=== PATIENT | female | born 1970 | race African-American/Black ===

== ENCOUNTER 2016-07-17 12:42 | Emergency (ER) ==
[2016-07-17] MEDS ORDERED: DECADRON IM ONE (14:42)
[2016-07-17] MEDS ORDERED: AMOXIL PO ONE (14:42)
[2016-07-17] MEDS ORDERED: ZYRTEC PO ONE (14:42)
[2016-07-17] MEDS ORDERED: TYLENOL PO ONE (14:42)
--- NOTE | 2016-07-17 14:48 | PROVIDER DOCUMENTATION ---
HPI-General Adult - General Chief Complaint: Cold Symptoms Stated Complaint: FLU SX Time Seen by Provider: 07/17/16 14:10 Source: patient Allergies/Adverse Reactions: Patient Allergies Allergy/AdvReac Type Severity Reaction Status Date / Time No Known Allergies Allergy Verified 07/17/16 13:14 Home Medications: Cholecalciferol (Vit D3) [Vitamin D] 1,000 unit PO BID 06/20/16 Folic Acid/Multivit-Min/Lutein [Multi-Vitamin Gummies] 1 tab PO BID 06/20/16 - History of Present Illness -Gen Adult Nature of Presenting Problems: Pt. is 45 yof that presents with c/o sinus pressure, congestion, sore throat, and cough. Pt. reports symptoms for two days. Pt. denies any fever or other symptoms at time of exam. Location of Pain/Injury: reports: head. denies: face, mouth, neck, chest, upper extremity, hand(s), abdomen, back, pelvis, genitalia, lower extremity, feet, upper body, lower body, generalized Pain Radiation: reports: no radiation Quality of Pain: reports: aching, pressure. denies: burning, cramping, dull, fullness, indigestion, sharp, stabbing, tearing, throbbing, tightness Severity: reports: mild. denies: moderate, severe Onset/Duration: reports: gradual, 2 days ago Timing: reports: still present. denies: improving, gone now, resolved prior to arrival, intermittent, constant, changing over time, getting worse Context/Activities at Onset: reports: none. denies: recent emotional stress, recent physical stress, recent trauma history, possible bad food, cold exposure , out of country travel Modifying Factors: improves with: nothing Associated Symptoms: reports: cough, EENT symptoms, headaches, malaise, sinus congestion/drainage. denies: anxiety, arm pain, back/neck pain, chest pain, constipation, diaphoresis, diarrhea, dizziness, fatigue, fever/chills, genitourinary problems, heartburn, joint pain, muscle aches, nausea, rash, seizure, shortness of breath, sensory/motor loss, pain with inspiration, swelling/mass in abdomen, syncope, vomiting, weakness, trouble walking Similar Symptoms Previously?: Yes Recently seen or treated by another doctor?: No Review of Systems - Adult - REVIEW OF SYSTEMS - ADULT Constitutional: reports: see HPI. denies: chills, fever, fatique, night sweats Eyes: reports: see HPI. denies: discharge, blurred vision, double vision, eye pain Ears, Nose, Mouth & Throat: reports: see HPI, sinus problem, throat pain. denies: ear pain, hearing loss, nose pain, loose teeth, mouth/dental pain, throat swelling Cardiovascular: reports: see HPI. denies: chest pain, irregular heart rate, palpitations, syncope Respiratory: reports: see HPI, cough. denies: dyspnea on exertion, pleurisy, shortness of breath, wheezing Gastrointestinal: reports: see HPI. denies: abdominal pain, hematemesis, diarrhea, nausea, vomiting Genitourinary: reports: see HPI. denies: dysuria, discharge, hematuria, incontinence, urgency Musculoskeletal: reports: see HPI. denies: bone pain, back pain, joint pain, muscle aches, neck pain Integumentary: reports: see HPI. denies: hives, itching, rash, skin thickening Neurological: reports: see HPI, headache/migraines. denies: ataxia, numbness, seizure, tremors Psychiatric: reports: see HPI. denies: anxiety, depression, emotional problems , insomnia, panic attacks, suicidal thoughts Past History - Adult - PAST MEDICAL HISTORY-ADULT Review of Records: reports: Old Records Reviewed, Nursing Assessment Review, Medications Reviewed, Social history reviewed & non-contributory. Major Childhood Illnesses: reports: denies history Cardiovascular: reports: denies history Respiratory: reports: denies history Gastrointestinal: reports: GERD Obstetrical/Gynecological: reports: denies history Genitourinary: reports: denies history Musculoskeletal: reports: arthritis Neurological: reports: denies history Psychiatric: reports: anxiety, depression ("healed") Endocrine/Immune: reports: anemia (chronic anemia) Other Conditions: reports: denies history - PRIOR SURGERIES/PROCEDURES Surgical/Procedure History: reports: hysterectomy, orthopedic (extremity) (Left knee), other (breast reduction) - PRIOR HOSPITALIZATIONS Prior Hospitalizations: reports: none - IMMUNIZATION STATUS Childhood Immunizations: See Nurse Assessment Flu Vaccine: See Nurse Assessment - FAMILY HISTORY Family History: reviewed, not pertinent Physical Exam-General - PHYSICAL EXAM-ADULT Initial Vital Signs Reviewed: Yes - CONSTITUTIONAL General Appearance: alert, mild distress, thin. negative: obese, anxious, lethargic, slow to respond, obtunded, combative - EYES Eyes: PERRL/EOMI, pink conjunctivae. negative: conjuctival exudate, photophobia , subconjunctival hemorrhage - HEAD, EARS, NOSE, MOUTH & THROAT HENMT: normocephalic/atraumatic, moist mucous membranes, pharyngeal erythema, frontal tenderness. negative: angioedema, tonsillar exudate, maxillary tenderness - NECK Neck: non-tender, full range of motion, supple, normal inspection. negative: lymphadenopathy, trachial deviation, thyromegaly - RESPIRATORY Respiratory: lungs clear, normal breath sounds. negative: crackles, rales, rhonchi, stridor, wheezing - CARDIOVASCULAR Cardiovascular: normal peripheral pulses, regular rate, rhythm, no edema, no JVD , no murmur. negative: extra beats, friction rub, irregularly irregular - CHEST (BREASTS) Chest/Breast: deferred - GASTROINTESTINAL (ABDOMEN) Abdominal Exam: normal bowel sounds, non tender, soft. negative: distended, guarding, rigid, rebound, tenderness, hernia, mass - GENITOURINARY Female Genitalia/Pelvic Exam: deferred Rectal Exam: deferred Hemoccult Exam: deferred - LYMPHATIC Lymphatic: no adenopathy. negative: axilla node tender, cervical node tenderness - MUSCULOSKELETAL Back Exam: normal inspection, no CVA tenderness, no vertebral tenderness. negative: ecchymosis, scoliosis, swelling, vertebral tenderness Extremity: normal range of motion, non-tender, normal gait, normal inspection. negative: deformity, erythema, inflammation, swelling, tenderness Peripheral Pulses: radial (R): 2+, radial (L): 2+ - SKIN Integumentary: normal color, normal turgor, warm/dry. negative: cyanosis, diaphoresis, ecchymosis, erythema, jaundice, mottled, pallor, petechiae, purpura , rash, swelling, tenderness - NEUROLOGIC Neurologic: grossly normal, no motor/sensory deficits. negative: abnormal gait , aphasia, facial droop, focal weakness, motor weakness, sensory deficit - PSYCHIATRIC Psych/Mental Status: normal mood/affect, normal thought content, normal thought process, oriented x 3. negative: anxious, paranoid, tearful Progress - PLAN OF CARE/RESULTS Progress/Plan/Lab Results: Discussed results and plan of care with patient. Patient agrees with plan and verbalizes understanding. Vital Signs Temp Pulse Resp BP Pulse Ox 07/17/16 13:12 98.4 F 105 H 18 120/065 99 No Known Allergies Allergy (Verified 07/17/16 13:14) Cholecalciferol (Vit D3) [Vitamin D] 1,000 unit PO BID 06/20/16 Folic Acid/Multivit-Min/Lutein [Multi-Vitamin Gummies] 1 tab PO BID 06/20/16 Meclizine [Antivert] 12.5 mg PO TID PRN #30 tablet 06/20/16 Orders Category Date Time Status Acetaminophen [Tylenol] Med 07/17/16 14:42 Discontinued 1,000 mg PO NOW ONE Amoxicillin [Amoxil] Med 07/17/16 14:42 Discontinued 500 mg PO NOW ONE Cetirizine [Zyrtec] Med 07/17/16 14:42 Discontinued 10 mg PO NOW ONE Dexamethasone [Decadron] Med 07/17/16 14:42 Discontinued 10 mg IM NOW ONE Departure - Departure Time of Disposition Order: 14:50 DIAGNOSIS: Sinusitis Qualifiers: Sinusitis location: frontal Chronicity: acute Recurrence: non-recurrent Qualified Code(s): J01.10 - Acute frontal sinusitis, unspecified Disposition: HOME 01 Certified Medical Emergency: Emergent Condition: Stable Additional Instructions: Follow up with primary care physician Take medications as directed Return to ED for any concerns or worsening of symptoms ED Follow Up Instructions: You have been treated by a care provider in the Emergency Department. These instructions are being provided to you so you can have an understanding of how to care for yourself upon discharge. Upon discharge from the Emergency Department, you are responsible for making arrangements for follow-up care by a physician of your choice. Take all prescribed medications as directed. Return to the Emergency Department immediately for any new or worsening symptoms. You may call the Physician Referral phone number at [phone] to obtain a list of Physicians who are taking new patients. Prescriptions: Amoxicillin 500 mg PO BID #14 tablet Methylprednisolone [Medrol Dosepak] 4 mg PO DIRECTED #1 package Benzonatate [Tessalon Perle] 100 mg PO TID #15 capsule Cetirizine [Zyrtec] 10 mg PO DAILY #20 tablet Attestation - Physician/ Mid-level Attestation Patient care was provided by Mid-level provider ([employer] ATTENDANT/PA):: Yes Mid-level provider:: Louise Monsalve Mid-level documentation review:: The Mid-level provider documentation, treatment plan and medical decision making was reviewed by the physician who agrees with all treatment and medical decision making by the MLP.
[2016-07-17 15:11] VITALS: BP 127/81
== END 2016-07-17 15:22 | disposition home or self-care (01) ==
LOC: P.ED 12:42
DX: J01.10 Acute frontal sinusitis, unspecified (principal); R09.81 Nasal congestion; J34.89 Other specified disorders of nose and nasal sinuses; J02.9 Acute pharyngitis, unspecified; R05 Cough; R51 Headache; R53.81 Other malaise; M19.90 Unspecified osteoarthritis, unspecified site
CPT/HCPCS: 96372

== ENCOUNTER 2016-09-07 13:39 | Emergency (ER) ==
[2016-09-07 14:09] VITALS: BP 134/73
[2016-09-07] MEDS ORDERED: TYLENOL PO ONE (14:11)
--- NOTE | 2016-09-07 14:41 | PROVIDER DOCUMENTATION ---
HPI-Respiratory General <Sanaz IrelandBarbi - Last Filed: 09/07/16 14:40> - General Source: patient - History of Present Illness-Resp Quality of Pain: reports: aching Severity in ED: reports: mild, moderate Onset/Duration: reports: gradual, 2 days ago Timing: reports: still present, constant Context: reports: multiple patients with similar complaints. denies: sports/ exercise, aspiration/choking Cough Quality/Degree: reports: mild, dry cough Episode Frequency: occasional episodes Current Respiratory Medication Therapy: Initiated see nurses note Modifying Factors: worse with: coughing Associated Symptoms: reports: cough, flu-like symptoms, muscle/bodyaches. denies: shortness of breath, short of breath, wheezing Similar Symptoms Previously?: No Recently seen or treated by another doctor?: No <Denver Richardson - Last Filed: 09/07/16 14:48> - General Chief Complaint: Flu Symptoms Stated Complaint: FLU SX Time Seen by Provider: 09/07/16 14:36 Allergies/Adverse Reactions: Patient Allergies Allergy/AdvReac Type Severity Reaction Status Date / Time No Known Allergies Allergy Verified 07/17/16 13:14 Home Medications: Home Medication List Medication Instructions Recorded Confirmed Last Taken Type Azithromycin [Zithromax Z-Jesse] 250 mg PO DIRECTED #1 pkg 09/07/16 Unknown Rx Methylprednisolone [Medrol Dosepak] 4 mg PO DIRECTED #1 package 09/07/16 Unknown Rx - History of Present Illness-Resp Nature of Presenting Problem: pt is a 45 y/o F that presents to the ER with 2 days of cough congestion, body aches, and fever/chills. patient denies n/v/d. (Denver Richardson) Review of Systems - Adult - REVIEW OF SYSTEMS - ADULT Constitutional: reports: chills, fever Eyes: denies: blurred vision, double vision Ears, Nose, Mouth & Throat: denies: ear pain, sinus problem, throat pain Cardiovascular: denies: chest pain, palpitations, syncope Respiratory: reports: cough. denies: shortness of breath, wheezing Gastrointestinal: reports: no symptoms reported Genitourinary: reports: no symptoms reported Musculoskeletal: reports: muscle aches, muscle weakness Integumentary: reports: no symptoms reported Neurological: reports: no symptoms reported Psychiatric: reports: no symptoms reported Endocrine: reports: no symptoms reported Hematologic/Lymphatic: reports: no symptoms reported Allergic/Immunologic: reports: no symptoms reported All Other Systems: Reviewed and Negative <Denver Richardson - Last Filed: 09/07/16 14:48> Past History - Adult - PAST MEDICAL HISTORY-ADULT Major Childhood Illnesses: reports: denies history Cardiovascular: reports: denies history Respiratory: reports: denies history Gastrointestinal: reports: GERD Obstetrical/Gynecological: reports: denies history Genitourinary: reports: denies history Musculoskeletal: reports: arthritis Neurological: reports: denies history Psychiatric: reports: anxiety, depression ("healed") Endocrine/Immune: reports: anemia (chronic anemia) Other Conditions: reports: denies history - PRIOR SURGERIES/PROCEDURES Surgical/Procedure History: reports: hysterectomy, orthopedic (extremity) (Left knee), other (breast reduction) - PRIOR HOSPITALIZATIONS Prior Hospitalizations: reports: none - IMMUNIZATION STATUS Childhood Immunizations: See Nurse Assessment Flu Vaccine: See Nurse Assessment - FAMILY HISTORY Family History: reviewed, not pertinent <Sanaz Ireland - Last Filed: 09/07/16 14:40> - PAST MEDICAL HISTORY-ADULT Review of Records: reports: Old Records Reviewed, Nursing Assessment Review, Medications Reviewed Gastrointestinal: reports: GERD Psychiatric: reports: anxiety Endocrine/Immune: reports: anemia - PRIOR SURGERIES/PROCEDURES Surgical/Procedure History: reports: hysterectomy, orthopedic (extremity) - IMMUNIZATION STATUS Childhood Immunizations: See Nurse Assessment Flu Vaccine: See Nurse Assessment - FAMILY HISTORY Family History: reviewed, not pertinent - SOCIAL HISTORY Smoking: non-smoker Alcohol Use Frequency: occasionally Living Situation: family <Denver Richardson - Last Filed: 09/07/16 14:48> Physical Exam-General - PHYSICAL EXAM-ADULT Initial Vital Signs Reviewed: Yes - CONSTITUTIONAL General Appearance: alert, no apparent distress - EYES Eyes: PERRL/EOMI, pink conjunctivae - HEAD, EARS, NOSE, MOUTH & THROAT HENMT: normocephalic/atraumatic, moist mucous membranes, normal ENT inspection - NECK Neck: non-tender, full range of motion, normal inspection - RESPIRATORY Respiratory: lungs clear, normal breath sounds, no respiratory distress, no accessory muscle use - CARDIOVASCULAR Cardiovascular: regular rate, rhythm, no edema, no murmur - GASTROINTESTINAL (ABDOMEN) Abdominal Exam: normal bowel sounds, non tender, soft, no organomegaly, no pulsatile mass - MUSCULOSKELETAL Back Exam: no CVA tenderness, no vertebral tenderness Extremity: normal range of motion, normal inspection, no pedal edema - SKIN Integumentary: normal color, warm/dry - NEUROLOGIC Neurologic: grossly normal, no motor/sensory deficits - PSYCHIATRIC Psych/Mental Status: normal mood/affect, normal thought content, normal thought process, oriented x 3 <Denver Richardson - Last Filed: 09/07/16 14:48> Progress <Sanaz Ireland - Last Filed: 09/07/16 14:40> <Denver Richardson - Last Filed: 09/07/16 14:48> - PLAN OF CARE/RESULTS Progress/Plan/Lab Results: Vital Signs Temp Pulse Resp BP Pulse Ox 09/07/16 14:06 101.8 F H 101 H 19 134/73 98 No Known Allergies Allergy (Verified 07/17/16 13:14) Azithromycin [Zithromax Z-Jesse] 250 mg PO DIRECTED #1 pkg 09/07/16 Methylprednisolone [Medrol Dosepak] 4 mg PO DIRECTED #1 package 09/07/16 Laboratory 09/07/16 14:10 Influenza A (Rapid) NEGATIVE Influenza B (Rapid) NEGATIVE Orders Category Date Time Status Flu [INFLUENZA SCREEN PL] Stat Lab 09/07/16 14:10 Completed Acetaminophen [Tylenol] Med 09/07/16 14:11 Discontinued 1,000 mg PO NOW ONE (Denver Richardson) Departure - Departure Time of Disposition Order: 14:41 Certified Medical Emergency: Emergent <Sanaz Ireland - Last Filed: 09/07/16 14:40> - Departure Certified Medical Emergency: Emergent <Denver Richardson - Last Filed: 09/07/16 14:48> - Departure DIAGNOSIS: URI, acute Disposition: HOME 01 Condition: Stable Additional Instructions: ED Follow Up Instructions: You have been treated by a care provider in the Emergency Department. These instructions are being provided to you so you can have an understanding of how to care for yourself upon discharge. Upon discharge from the Emergency Department, you are responsible for making arrangements for follow-up care by a physician of your choice. Take all prescribed medications as directed. Return to the Emergency Department immediately for any new or worsening symptoms. You may call the Physician Referral phone number at [phone] to obtain a list of Physicians who are taking new patients. Prescriptions: Methylprednisolone [Medrol Dosepak] 4 mg PO DIRECTED #1 package Azithromycin [Zithromax Z-Jesse] 250 mg PO DIRECTED #1 pkg Referrals: [Primary Care Provider] - Attestation - Scribe Verification/Attestation Scribe:: Denver Richardson Acting as Scribe for:: Sanaz Ireland Scribe documention review:: This chart was documented by a scribe and accurately reflects the service the provider performed and the decisions made by the provider. - Physician/ GIO Attestation Patient care was provided by Advanced Practice Provider:: Yes Advanced Practice Provider:: Sanaz Ireland Advanced Practice Provider documentation review:: The Mid-level provider documentation, treatment plan and medical decision making was reviewed by the physician who agrees with all treatment and medical decision making by the MLP. <Denver Richardson - Last Filed: 09/07/16 14:48> Physician Attestation - Physician Attestation I, the provider, attest to the following statement:: Sanaz Ireland Physician documentation Attestation:: This documentation recorded by the scribe accurately reflects the service I personally performed and the decisions made by me. <Denver Richardson - Last Filed: 09/07/16 14:48>
== END 2016-09-07 14:50 | disposition home or self-care (01) ==
LOC: P.ED 13:39
DX: J06.9 Acute upper respiratory infection, unspecified (principal); R05 Cough; R09.81 Nasal congestion; M79.1 Myalgia; R50.9 Fever, unspecified; M62.81 Muscle weakness (generalized); M19.90 Unspecified osteoarthritis, unspecified site
CPT/HCPCS: 87804; 99283